=== PATIENT | female | born 1960 | race Caucasian/White ===

== ENCOUNTER 2021-09-27 19:58 | Inpatient (IN) | payer MEDICARE, MEDICAID ==
[2021-09-27 20:28] LABS: #Basophils 0.1 10x3/uL (0.0-0.2); #Eosinphils 0.1 10x3/uL (0.0-0.5); #Neutrophils 15.2 10x3/uL (1.5-8.4); %Basophils 0.3 % (0.0-2.0); %Eosinophils 0.5 % (0.0-6.0); %Lymphocytes 5.1 % (18.0-47.0); %Monocytes 10.8 % (0.0-10.0); %Neutrophils 82.4 % (40.0-75.0); Hemoglobin 10.2 g/dL (12.0-15.5); Mean Corpuscular Hemoglobin 29.7 pg (27.0-33.0); Mean Platelet Volume 10.9 fl (7.4-10.4); Platelet Count 177 10x3/uL (150-450); RBC Distribution Width 16.2 % (11.5-14.5); Red Blood Cell (RBC) Count 3.43 10x6/uL (3.90-5.03); White Blood Cell (WBC) Count 18.4 10x3/uL (3.5-10.5)
[2021-09-27 20:31] LABS: ALT (SGPT) 39 U/L (8-55); AST (SGOT) 43 U/L (5-34); Albumin 3.5 g/dL (3.4-4.8); Alkaline Phosphatase 85 U/L (40-110); Anion Gap 14 mmol/L (10-20); BUN (Urea Nitrogen) 36 mg/dL (9.8-20.1); Bilirubin, Total 0.5 mg/dL (0.2-1.2); Calc. Creatinine Clearance 0 mL/min (70-130); Carbon Dioxide 24 mmol/L (23-31); Chloride 105 mmol/L (98-107); Globulin 2.3 g/dL (2.4-3.5); Glucose 108 mg/dL (80-115); Potassium 4.5 mmol/L (3.5-5.1); Protein, Total 5.8 g/dL (5.8-8.1); Sodium 138 mmol/L (136-145)
[2021-09-27 21:28] LABS: SARS-CoV-2 NAA Rapid Test Not Detected (NotDetected)
[2021-09-27 21:32] LABS: Bilirubin Neg (Negative); Blood, Urine 150 (Negative); Clarity Slightly Cloudy (Clear); Glucose, Urine (Dipstick) Normal (Negative); Ketone, Urine 5 mg/dL (Negative); Leukocyte 500 (Negative); Nitrite Positive (Negative); Protein, Urine (Dipstick) 30 mg/dl (Neg-Trace); Urobilinogen Normal mg/dL (Less than 2)
[2021-09-27] MEDS ORDERED: cefTRIAXone\\ROCEPHIN 1 GM VIAL ONE (21:43)
[2021-09-27 21:54] LABS: Bacteria/HPF 4+ HPF (None Seen); Mucous/LPF 3+ LPF (<2+); Squamous Epithelial 0-3 HPF (0-3); WBC/HPF 21-50 HPF (0-3)
[2021-09-27] MEDS ORDERED: cefTRIAXone\\ROCEPHIN 2 GM in Sodium Chloride 0.9% 100 ML IVPB SCH (22:00)
[2021-09-27] MEDS ORDERED: Ondansetron ODT 4 MG TAB PO PRN (22:56)
[2021-09-27] MEDS ORDERED: Ondansetron PF 4 MG/2 ML Vial IVP PRN (22:56)
[2021-09-27] MEDS ORDERED: cefTRIAXone\\ROCEPHIN 1 GM in Sodium Chloride 0.9% 100 ML IVPB SCH (23:00)
[2021-09-27] MEDS ORDERED: traMADol HCl 50 MG TAB PO PRN (23:09)
[2021-09-27] MEDS ORDERED: Furosemide 40 MG TAB PO PRN (23:09)
[2021-09-27] MEDS ORDERED: Alendronate Sodium 70 mg Tablet PO SCH (23:15)
[2021-09-28 00:05] VITALS: BMI 44.2
[2021-09-28] MEDS ORDERED: hydrOXYzine 25 MG TAB PO SCH (01:00)
[2021-09-28] MEDS ORDERED: Amiodarone 200 MG TAB PO SCH (01:00)
[2021-09-28] MEDS ORDERED: Aspirin Chewable 81 MG TAB PO SCH ×2 (01:00→09:00)
[2021-09-28] MEDS ORDERED: Gabapentin 300 MG CAP PO SCH (01:00)
[2021-09-28] MEDS ORDERED: Montelukast Sodium 10 mg Tablet PO SCH ×2 (01:00→09:00)
[2021-09-28] MEDS: Sodium Chloride 0.9% 1,000 ML IV SCH ×2 (05:00→09:45)
[2021-09-28 05:52] LABS: Anion Gap 12 mmol/L (10-20); BUN (Urea Nitrogen) 30 mg/dL (9.8-20.1); Calc. Creatinine Clearance 105 mL/min (70-130); Calcium 7.7 mg/dL (7.8-10.44); Carbon Dioxide 22 mmol/L (23-31); Chloride 109 mmol/L (98-107); Glucose 100 mg/dL (80-115); Potassium 4.1 mmol/L (3.5-5.1); Sodium 139 mmol/L (136-145)
[2021-09-28 06:01] LABS: Hemoglobin 9.6 g/dL (12.0-15.5); Mean Corpuscular HGB CONC 32.2 g/dL (32.0-36.0); Mean Corpuscular Hemoglobin 29.4 pg (27.0-33.0); Mean Corpuscular Volume 91.4 fl (81.6-98.3); Mean Platelet Volume 11.1 fl (7.4-10.4); Platelet Count 165 10x3/uL (150-450); RBC Distribution Width 16.1 % (11.5-14.5); Red Blood Cell (RBC) Count 3.26 10x6/uL (3.90-5.03); White Blood Cell (WBC) Count 14.9 10x3/uL (3.5-10.5)
[2021-09-28 06:25] LABS: MDiff Complete? YES
[2021-09-28 06:29] LABS: Lymphocytes 8 % (21-51); Monocytes 13 % (0-10); Neutrophil 79 % (42-75)
[2021-09-28 06:30] LABS: Platelet Morphology Comment Appears Adequate
[2021-09-28 06:31] LABS: Microcytosis SLIGHT = 6-15 cells (100X) (0-5/hpf)
[2021-09-28] MEDS: Acetaminophen 325 MG TAB PO PRN ×2 (06:49→11:15)
[2021-09-28] MEDS: Amiodarone 200 MG TAB PO SCH ×2 (09:34→20:50)
[2021-09-28] MEDS: Enoxaparin Sodium 40 MG/0.4 ML SYRINGE SC SCH (09:34)
[2021-09-28] MEDS: Bupropion 150 MG XL TAB PO SCH (09:34)
[2021-09-28] MEDS: Gabapentin 300 MG CAP PO SCH ×3 (09:35→20:47)
[2021-09-28] MEDS: Digoxin 0.125 MG TAB PO SCH (09:35)
[2021-09-28] MEDS: Aspirin Chewable 81 MG TAB PO SCH (20:47)
[2021-09-28] MEDS: Montelukast Sodium 10 mg Tablet PO SCH (20:48)
[2021-09-28] MEDS: hydrOXYzine 25 MG TAB PO SCH (20:49)
[2021-09-28] MEDS: cefTRIAXone\\ROCEPHIN 2 GM in Sodium Chloride 0.9% 100 ML IVPB SCH (22:59)
[2021-09-29] MEDS: Acetaminophen 325 MG TAB PO PRN (11:20)
[2021-09-29] MEDS: Digoxin 0.125 MG TAB PO SCH (11:21)
[2021-09-29] MEDS: Amiodarone 200 MG TAB PO SCH ×2 (11:21→21:04)
[2021-09-29] MEDS: Gabapentin 300 MG CAP PO SCH ×3 (11:22→21:07)
[2021-09-29] MEDS: Bupropion 150 MG XL TAB PO SCH (11:23)
[2021-09-29] MEDS: Enoxaparin Sodium 40 MG/0.4 ML SYRINGE SC SCH (11:33)
[2021-09-29 15:21] LABS: Hemoglobin 9.5 g/dL (12.0-15.5); Mean Corpuscular HGB CONC 31.9 g/dL (32.0-36.0); Mean Corpuscular Hemoglobin 29.1 pg (27.0-33.0); Mean Corpuscular Volume 91.1 fl (81.6-98.3); Mean Platelet Volume 11.5 fl (7.4-10.4); Platelet Count 174 10x3/uL (150-450); RBC Distribution Width 16.2 % (11.5-14.5); Red Blood Cell (RBC) Count 3.27 10x6/uL (3.90-5.03)
[2021-09-29 15:22] LABS: MDiff Complete? YES
[2021-09-29 15:24] LABS: #Eosinphils 0.1 10x3/uL (0.0-0.5); #Monocytes 0.9 10x3/uL (0.0-1.1); #Neutrophils 7.2 10x3/uL (1.5-8.4); %Basophils 0.3 % (0.0-2.0); %Eosinophils 0.7 % (0.0-6.0); %Lymphocytes 10.1 % (18.0-47.0); %Monocytes 9.7 % (0.0-10.0); %Neutrophils 78.7 % (40.0-75.0)
[2021-09-29 15:29] LABS: Anion Gap 11 mmol/L (10-20); BUN (Urea Nitrogen) 30 mg/dL (9.8-20.1); Calc. Creatinine Clearance 90 mL/min (70-130); Carbon Dioxide 22 mmol/L (23-31); Chloride 104 mmol/L (98-107); Glucose 102 mg/dL (80-115); Potassium 4.4 mmol/L (3.5-5.1); Sodium 133 mmol/L (136-145)
[2021-09-29] MEDS ORDERED: Sodium Chloride 0.9% 1,000 ML IV SCH (16:15)
[2021-09-29] MEDS: Aspirin Chewable 81 MG TAB PO SCH (21:03)
[2021-09-29] MEDS: Montelukast Sodium 10 mg Tablet PO SCH (21:04)
[2021-09-29] MEDS: hydrOXYzine 25 MG TAB PO SCH (21:06)
[2021-09-30] MEDS: cefTRIAXone\\ROCEPHIN 2 GM in Sodium Chloride 0.9% 100 ML IVPB SCH ×2 (00:28→21:09)
[2021-09-30] MEDS: Acetaminophen 325 MG TAB PO PRN ×3 (00:32→19:05)
[2021-09-30 05:26] LABS: Hemoglobin 9.5 g/dL (12.0-15.5); Mean Corpuscular HGB CONC 32.4 g/dL (32.0-36.0); Mean Corpuscular Hemoglobin 29.2 pg (27.0-33.0); Mean Corpuscular Volume 90.2 fl (81.6-98.3); Mean Platelet Volume 11.1 fl (7.4-10.4); Platelet Count 192 10x3/uL (150-450); RBC Distribution Width 16.2 % (11.5-14.5); Red Blood Cell (RBC) Count 3.25 10x6/uL (3.90-5.03); White Blood Cell (WBC) Count 7.1 10x3/uL (3.5-10.5)
[2021-09-30 05:32] LABS: Anion Gap 13 mmol/L (10-20); BUN (Urea Nitrogen) 24 mg/dL (9.8-20.1); Calc. Creatinine Clearance 103 mL/min (70-130); Calcium 7.7 mg/dL (7.8-10.44); Carbon Dioxide 22 mmol/L (23-31); Chloride 106 mmol/L (98-107); Glucose 83 mg/dL (80-115); Potassium 4.6 mmol/L (3.5-5.1); Sodium 136 mmol/L (136-145)
[2021-09-30 05:55] LABS: Anisocytosis SLIGHT = 6-15 cells (100X) (0-5/hpf); Hypochromia SLIGHT = 6-15 cells (100X) (0-5/hpf); MDiff Complete? YES; Platelet Morphology Comment Appears Adequate
[2021-09-30 05:58] LABS: Band 1 % (5-11); Eosinophils 1 % (0-10); Lymphocytes 16 % (21-51); Monocytes 9 % (0-10); Neutrophil 71 % (42-75); Reactive Lymphocytes 2 % (0-10)
[2021-09-30] MEDS: Enoxaparin Sodium 40 MG/0.4 ML SYRINGE SC SCH (10:11)
[2021-09-30] MEDS: Gabapentin 300 MG CAP PO SCH ×3 (10:14→21:06)
[2021-09-30] MEDS: Digoxin 0.125 MG TAB PO SCH (10:14)
[2021-09-30] MEDS: Bupropion 150 MG XL TAB PO SCH (10:15)
[2021-09-30] MEDS: Amiodarone 200 MG TAB PO SCH ×2 (10:15→21:06)
[2021-09-30] MEDS: Aspirin Chewable 81 MG TAB PO SCH (21:06)
[2021-09-30] MEDS: Montelukast Sodium 10 mg Tablet PO SCH (21:07)
[2021-09-30] MEDS: hydrOXYzine 25 MG TAB PO SCH (21:07)
[2021-10-01 04:54] LABS: #Eosinphils 0.3 10x3/uL (0.0-0.5); #Neutrophils 4.1 10x3/uL (1.5-8.4); %Basophils 0.4 % (0.0-2.0); %Eosinophils 4.4 % (0.0-6.0); %Monocytes 14.2 % (0.0-10.0); %Neutrophils 57.7 % (40.0-75.0); Hemoglobin 9.5 g/dL (12.0-15.5); Mean Corpuscular HGB CONC 32.1 g/dL (32.0-36.0); Mean Corpuscular Hemoglobin 29.2 pg (27.0-33.0); Mean Corpuscular Volume 91.1 fl (81.6-98.3); Mean Platelet Volume 10.5 fl (7.4-10.4); Platelet Count 223 10x3/uL (150-450); RBC Distribution Width 16.4 % (11.5-14.5); Red Blood Cell (RBC) Count 3.25 10x6/uL (3.90-5.03)
[2021-10-01 05:08] LABS: ALT (SGPT) 26 U/L (8-55); AST (SGOT) 18 U/L (5-34); Alkaline Phosphatase 82 U/L (40-110); Anion Gap 12 mmol/L (10-20); BUN (Urea Nitrogen) 23 mg/dL (9.8-20.1); Bilirubin, Total 0.1 mg/dL (0.2-1.2); Calc. Creatinine Clearance 115 mL/min (70-130); Carbon Dioxide 23 mmol/L (23-31); Chloride 108 mmol/L (98-107); Globulin 2.7 g/dL (2.4-3.5); Glucose 87 mg/dL (80-115); Magnesium 2.1 mg/dL (1.6-2.6); Potassium 4.6 mmol/L (3.5-5.1); Protein, Total 5.7 g/dL (5.8-8.1); Sodium 138 mmol/L (136-145)
[2021-10-01 05:28] LABS: Phosphorus 1.9 mg/dL (2.3-4.7)
[2021-10-01] MEDS: Enoxaparin Sodium 40 MG/0.4 ML SYRINGE SC SCH (10:33)
[2021-10-01] MEDS: Bupropion 150 MG XL TAB PO SCH (10:37)
[2021-10-01] MEDS: Gabapentin 300 MG CAP PO SCH ×2 (10:37→14:05)
[2021-10-01] MEDS: PHOS-NAK 1 PKT PACK PO SCH ×2 (10:39→14:05)
[2021-10-01] MEDS: Digoxin 0.125 MG TAB PO SCH (10:53)
[2021-10-01] MEDS: Amiodarone 200 MG TAB PO SCH (10:54)
[2021-10-01] MEDS: Acetaminophen 325 MG TAB PO PRN (14:03)
[2021-10-01 17:57] VITALS: BP 142/62; TEMP 98.8
== END 2021-10-01 17:58 | disposition home or self-care (01) | DRG 872 ==
LOC: CSHERS 19:58 → CSHTELE 09-28 00:01
PROVIDERS: ADMIT Family Medicine; ATTEND Family Medicine
DX: A41.51 Sepsis due to Escherichia coli [E. coli] (principal); N39.0 Urinary tract infection, site not specified; I42.8 Other cardiomyopathies; N17.9 Acute kidney failure, unspecified; K31.1 Adult hypertrophic pyloric stenosis; M19.90 Unspecified osteoarthritis, unspecified site; Z20.822 Contact with and (suspected) exposure to COVID-19; I48.91 Unspecified atrial fibrillation; K21.9 Gastro-esophageal reflux disease without esophagitis; I10 Essential (primary) hypertension; E66.9 Obesity, unspecified; E78.5 Hyperlipidemia, unspecified; E78.00 Pure hypercholesterolemia, unspecified; E86.0 Dehydration; Z96.653 Presence of artificial knee joint, bilateral; D64.9 Anemia, unspecified; Z95.810 Presence of automatic (implantable) cardiac defibrillator; Z79.82 Long term (current) use of aspirin; Z79.899 Other long term (current) drug therapy; Z90.49 Acquired absence of other specified parts of digestive tract; Z90.89 Acquired absence of other organs; Z98.84 Bariatric surgery status
CPT/HCPCS: 0240U; 36415; 51701; 76770; 80048; 80053; 81003; 81015; 83605; 83735; 84100; 84484; 85025; 87040; 87077; 87086; 87149; 87186; 93005; 96365; J0696; J1650; J3490; J7050

== ENCOUNTER 2021-11-04 14:46 | Emergency (ER) | payer MEDICARE, MEDICAID ==
[2021-11-04 15:55] LABS: Bilirubin Neg (Negative); Blood, Urine Negative (Negative); Clarity Clear (Clear); Glucose, Urine (Dipstick) Normal (Negative); Ketone, Urine 15 mg/dL (Negative); Leukocyte 100 (Negative); Nitrite Negative (Negative); Protein, Urine (Dipstick) Negative (Neg-Trace)
[2021-11-04 16:09] LABS: Bacteria/HPF Rare-Few HPF (None Seen); RBC/HPF 0-3 HPF (0-3); Squamous Epithelial 0-3 HPF (0-3); WBC/HPF 0-3 HPF (0-3)
[2021-11-04 16:29] LABS: #Eosinphils 0.1 10x3/uL (0.0-0.5); #Monocytes 0.7 10x3/uL (0.0-1.1); #Neutrophils 5.9 10x3/uL (1.5-8.4); %Basophils 0.5 % (0.0-2.0); %Eosinophils 1.5 % (0.0-6.0); %Lymphocytes 17.3 % (18.0-47.0); %Monocytes 8.4 % (0.0-10.0); %Neutrophils 72.2 % (40.0-75.0); Hemoglobin 12.1 g/dL (12.0-15.5); Mean Corpuscular HGB CONC 32.6 g/dL (32.0-36.0); Mean Corpuscular Hemoglobin 29.9 pg (27.0-33.0); Mean Corpuscular Volume 91.6 fl (81.6-98.3); Mean Platelet Volume 10.9 fl (7.4-10.4); Platelet Count 214 10x3/uL (150-450); RBC Distribution Width 16.6 % (11.5-14.5); Red Blood Cell (RBC) Count 4.05 10x6/uL (3.90-5.03); White Blood Cell (WBC) Count 8.2 10x3/uL (3.5-10.5)
[2021-11-04 17:04] LABS: ALT (SGPT) 27 U/L (8-55); AST (SGOT) 20 U/L (5-34); Albumin 3.9 g/dL (3.4-4.8); Alkaline Phosphatase 65 U/L (40-110); Anion Gap 14 mmol/L (10-20); BUN (Urea Nitrogen) 21 mg/dL (9.8-20.1); Bilirubin, Total 0.8 mg/dL (0.2-1.2); Calc. Creatinine Clearance 0 mL/min (70-130); Calcium 8.8 mg/dL (7.8-10.44); Carbon Dioxide 28 mmol/L (23-31); Chloride 101 mmol/L (98-107); Globulin 2.8 g/dL (2.4-3.5); Glucose 100 mg/dL (80-115); Potassium 4.6 mmol/L (3.5-5.1); Protein, Total 6.7 g/dL (5.8-8.1); Sodium 138 mmol/L (136-145)
[2021-11-04 19:45] LABS: Digoxin 1.19 ng/mL (0.8-2.0)
[2021-11-04 19:51] LABS: Troponin I 0.013 ng/mL (< 0.028)
== END 2021-11-04 20:57 | disposition home or self-care (01) ==
LOC: CSHERS 14:46
DX: R00.1 Bradycardia, unspecified (principal); R53.1 Weakness; I10 Essential (primary) hypertension; K21.9 Gastro-esophageal reflux disease without esophagitis; E78.5 Hyperlipidemia, unspecified; E78.00 Pure hypercholesterolemia, unspecified; Z79.82 Long term (current) use of aspirin; Z79.899 Other long term (current) drug therapy
CPT/HCPCS: 36415; 71045; 74177; 80053; 80162; 81003; 81015; 83605; 84484; 85025; 87040; 87086; 87804; 93005

== ENCOUNTER 2022-01-17 10:18 | Outpatient (CLI) | payer MEDICARE, MEDICAID | END 2022-01-17 10:19 | disposition home or self-care (01) | LOC: CSHCT 10:18 | PROVIDERS: ATTEND Specialist | DX: E21.3 Hyperparathyroidism, unspecified (principal) | CPT/HCPCS: 70492; 82565 ==

== ENCOUNTER 2022-12-04 15:18 | Inpatient (IN) | payer MEDICARE, MEDICAID ==
[2022-12-04 16:42] LABS: #Basophils 0.1 10x3/uL (0.0-0.2); #Eosinphils 0.2 10x3/uL (0.0-0.5); #Monocytes 1.2 10x3/uL (0.0-1.1); #Neutrophils 10.6 10x3/uL (1.5-8.4); %Basophils 0.5 % (0.0-2.0); %Eosinophils 1.3 % (0.0-6.0); %Monocytes 8.8 % (0.0-10.0); %Neutrophils 80.9 % (40.0-75.0); Hemoglobin 13.7 g/dL (12.0-15.5); Mean Corpuscular HGB CONC 33.3 g/dL (32.0-36.0); Mean Corpuscular Hemoglobin 29.3 pg (27.0-33.0); Mean Platelet Volume 10.9 fl (7.4-10.4); Platelet Count 285 10x3/uL (150-450); RBC Distribution Width 16.8 % (11.5-14.5); Red Blood Cell (RBC) Count 4.68 10x6/uL (3.90-5.03); White Blood Cell (WBC) Count 13.1 10x3/uL (3.5-10.5)
[2022-12-04 16:56] LABS: ALT (SGPT) 624 U/L (8-55); AST (SGOT) 437 U/L (5-34); Albumin 3.5 g/dL (3.4-4.8); Alkaline Phosphatase 125 U/L (40-110); Anion Gap 16 mmol/L (10-20); BUN (Urea Nitrogen) 51 mg/dL (9.8-20.1); Bilirubin, Total 1.3 mg/dL (0.2-1.2); CK (CPK) 20 U/L (29-168); Calc. Creatinine Clearance 0 mL/min (70-130); Calcium 9.6 mg/dL (7.8-10.44); Carbon Dioxide 30 mmol/L (23-31); Chloride 96 mmol/L (98-107); Estimated GFR 17; Globulin 2.8 g/dL (2.4-3.5); Glucose 98 mg/dL (80-115); Lipase 58 U/L (8-78); Magnesium 2.3 mg/dL (1.6-2.6); Potassium 5.2 mmol/L (3.5-5.1); Protein, Total 6.3 g/dL (5.8-8.1); Sodium 137 mmol/L (136-145)
[2022-12-04 17:45] LABS: Phosphorus 3.3 mg/dL (2.3-4.7)
[2022-12-04 17:47] LABS: Acetaminophen Less than 10.0 mcg/mL (10.0-30.0)
[2022-12-04 18:00] LABS: Digoxin 6.42 ng/mL (0.8-2.0)
[2022-12-04 18:56] LABS: ALT (SGPT) 625 U/L (8-55); AST (SGOT) 425 U/L (5-34); Albumin 3.5 g/dL (3.4-4.8); Alkaline Phosphatase 126 U/L (40-110); Anion Gap 15 mmol/L (10-20); BUN (Urea Nitrogen) 50 mg/dL (9.8-20.1); Bilirubin, Total 1.3 mg/dL (0.2-1.2); Calc. Creatinine Clearance 0 mL/min (70-130); Calcium 9.5 mg/dL (7.8-10.44); Carbon Dioxide 30 mmol/L (23-31); Chloride 96 mmol/L (98-107); Estimated GFR 18; Globulin 2.8 g/dL (2.4-3.5); Glucose 93 mg/dL (80-115); Potassium 5.4 mmol/L (3.5-5.1); Protein, Total 6.3 g/dL (5.8-8.1); Sodium 136 mmol/L (136-145)
[2022-12-04 19:18] LABS: Magnesium 2.3 mg/dL (1.6-2.6)
[2022-12-04 19:43] LABS: SARS-CoV-2 NAA Rapid Test DETECTED (NotDetected)
[2022-12-04] MEDS ORDERED: Calcium Carbonate 500 MG ChewTAB PO PRN (19:49)
[2022-12-04] MEDS ORDERED: Guaifenesin DM 100-10/5 ML UDCUP PO PRN (19:49)
[2022-12-04] MEDS ORDERED: Senokot S 8.6-50 MG TAB PO PRN (19:49)
[2022-12-04] MEDS ORDERED: Sodium Chloride 0.9% 1,000 ML IV SCH (20:00)
[2022-12-04 20:51] LABS: ALT (SGPT) 585 U/L (8-55); AST (SGOT) 386 U/L (5-34); Albumin 3.3 g/dL (3.4-4.8); Alkaline Phosphatase 117 U/L (40-110); Anion Gap 15 mmol/L (10-20); BUN (Urea Nitrogen) 49 mg/dL (9.8-20.1); Bilirubin, Total 1.2 mg/dL (0.2-1.2); Calc. Creatinine Clearance 0 mL/min (70-130); Calcium 9.4 mg/dL (7.8-10.44); Carbon Dioxide 32 mmol/L (23-31); Chloride 95 mmol/L (98-107); Estimated GFR 19; Globulin 2.6 g/dL (2.4-3.5); Glucose 89 mg/dL (80-115); Magnesium 2.2 mg/dL (1.6-2.6); Potassium 5.7 mmol/L (3.5-5.1); Protein, Total 5.9 g/dL (5.8-8.1); Sodium 136 mmol/L (136-145)
[2022-12-04] MEDS: Heparin 5,000 UNITS/ML VIAL SC SCH (22:12)
[2022-12-04] MEDS: Montelukast Sodium 10 mg Tablet PO SCH (22:12)
[2022-12-04] MEDS ORDERED: Calcium Gluc 4.6 MEQ/10 ML (100 MG/ML) SLOW IVP SCH (22:30)
[2022-12-04 23:02] LABS: Anion Gap 13 mmol/L (10-20); BUN (Urea Nitrogen) 51 mg/dL (9.8-20.1); Calc. Creatinine Clearance 31 mL/min (70-130); Carbon Dioxide 22 mmol/L (23-31); Chloride 98 mmol/L (98-107); Estimated GFR 20; Glucose 78 mg/dL (80-115); Sodium 127 mmol/L (136-145)
[2022-12-04 23:28] LABS: HBCM Index 0.06 S/CO (0-0.79); HBSAg Index 0.32 S/CO (0-0.99); Hep A IgM AB Non-Reactive (NonReactive); Hep A IgM S/CO 0.19 S/CO (0-0.79); Hep B Surf Ag Non-Reactive S/CO (NonReactive); Hep C IgG Ab Non-Reactive (NonReactive); Hep C Index 0.05 S/CO (0-0.79); Hepatitis B Core IgM Abs Non-Reactive (NonReactive)
[2022-12-04 23:38] LABS: Potassium 5.3 mmol/L (3.5-5.1)
[2022-12-05 04:14] LABS: #Basophils 0.1 10x3/uL (0.0-0.2); #Eosinphils 0.2 10x3/uL (0.0-0.5); #Monocytes 1.1 10x3/uL (0.0-1.1); #Neutrophils 8.2 10x3/uL (1.5-8.4); %Basophils 0.5 % (0.0-2.0); %Lymphocytes 9.3 % (18.0-47.0); %Monocytes 10.5 % (0.0-10.0); %Neutrophils 77.1 % (40.0-75.0); Hemoglobin 13.5 g/dL (12.0-15.5); Mean Corpuscular HGB CONC 34.1 g/dL (32.0-36.0); Mean Corpuscular Hemoglobin 29.8 pg (27.0-33.0); Mean Corpuscular Volume 87.4 fl (81.6-98.3); Mean Platelet Volume 10.6 fl (7.4-10.4); Platelet Count 242 10x3/uL (150-450); RBC Distribution Width 16.7 % (11.5-14.5); Red Blood Cell (RBC) Count 4.53 10x6/uL (3.90-5.03); White Blood Cell (WBC) Count 10.6 10x3/uL (3.5-10.5)
[2022-12-05 04:32] LABS: ALT (SGPT) 564 U/L (8-55); AST (SGOT) 348 U/L (5-34); Albumin 3.2 g/dL (3.4-4.8); Alkaline Phosphatase 116 U/L (40-110); Anion Gap 16 mmol/L (10-20); BUN (Urea Nitrogen) 49 mg/dL (9.8-20.1); Bilirubin, Total 1.1 mg/dL (0.2-1.2); Calc. Creatinine Clearance 32 mL/min (70-130); Calcium 9.1 mg/dL (7.8-10.44); Carbon Dioxide 28 mmol/L (23-31); Chloride 97 mmol/L (98-107); Estimated GFR 21; Globulin 2.6 g/dL (2.4-3.5); Glucose 89 mg/dL (80-115); Magnesium 2.1 mg/dL (1.6-2.6); Potassium 5.2 mmol/L (3.5-5.1); Protein, Total 5.8 g/dL (5.8-8.1); Sodium 136 mmol/L (136-145)
[2022-12-05 05:07] LABS: Digoxin 5.28 ng/mL (0.8-2.0)
[2022-12-05 05:23] LABS: Bilirubin Neg (Negative); Blood, Urine Negative (Negative); Clarity Clear (Clear); Glucose, Urine (Dipstick) Normal (Negative); Ketone, Urine 5 mg/dL (Negative); Leukocyte Negative (Negative); Nitrite Negative (Negative); Protein, Urine (Dipstick) 15 mg/dl (Neg-Trace); Urobilinogen Normal mg/dL (Less than 2)
[2022-12-05 06:06] LABS: RBC/HPF None Seen HPF (0-3); WBC/HPF None Seen HPF (0-3)
[2022-12-05 06:07] LABS: Bacteria/HPF None Seen HPF (None Seen); Squamous Epithelial None Seen HPF (0-3)
[2022-12-05] MEDS: Aspirin 81 mg Enteric Coated Tablet PO SCH (07:56)
[2022-12-05] MEDS: Multivitamin W/ Minerals 1 TAB PO SCH (07:56)
[2022-12-05] MEDS: Ondansetron PF 4 MG/2 ML Vial IVP PRN (07:56)
[2022-12-05] MEDS: Heparin 5,000 UNITS/ML VIAL SC SCH ×3 (07:56→20:35)
[2022-12-05] MEDS: Sodium Chloride 0.9% 1,000 ML IV SCH (08:00)
[2022-12-05] MEDS: Gabapentin 100 MG CAP PO SCH (08:03)
[2022-12-05] MEDS: Acetaminophen 325 MG TAB PO PRN (20:34)
[2022-12-05] MEDS: Montelukast Sodium 10 mg Tablet PO SCH (20:34)
[2022-12-06 04:53] LABS: Anion Gap 12 mmol/L (10-20); BUN (Urea Nitrogen) 35 mg/dL (9.8-20.1); Calc. Creatinine Clearance 58 mL/min (70-130); Calcium 8.4 mg/dL (7.8-10.44); Carbon Dioxide 28 mmol/L (23-31); Chloride 100 mmol/L (98-107); Estimated GFR 43; Glucose 84 mg/dL (80-115); Potassium 4.3 mmol/L (3.5-5.1); Sodium 136 mmol/L (136-145)
[2022-12-06 05:00] LABS: Digoxin 4.07 ng/mL (0.8-2.0)
[2022-12-06 05:44] VITALS: BMI 34.2
[2022-12-06] MEDS: Sodium Chloride 0.9% 1,000 ML IV SCH ×2 (05:46→17:33)
[2022-12-06] MEDS: Gabapentin 100 MG CAP PO SCH (08:26)
[2022-12-06] MEDS: Multivitamin W/ Minerals 1 TAB PO SCH (08:27)
[2022-12-06] MEDS: Aspirin 81 mg Enteric Coated Tablet PO SCH (08:27)
[2022-12-06] MEDS: Heparin 5,000 UNITS/ML VIAL SC SCH ×3 (08:27→21:16)
[2022-12-06] MEDS ORDERED: Bupropion 150 MG XL TAB PO SCH (13:00)
[2022-12-06] MEDS: Ondansetron PF 4 MG/2 ML Vial IVP PRN (13:47)
[2022-12-06] MEDS: Montelukast Sodium 10 mg Tablet PO SCH (21:16)
[2022-12-06] MEDS: Acetaminophen 325 MG TAB PO PRN (22:08)
[2022-12-07] MEDS: Gabapentin 100 MG CAP PO SCH (08:50)
[2022-12-07] MEDS: Heparin 5,000 UNITS/ML VIAL SC SCH ×3 (08:50→20:04)
[2022-12-07] MEDS: Bupropion 150 MG XL TAB PO SCH (08:51)
[2022-12-07] MEDS: Multivitamin W/ Minerals 1 TAB PO SCH (08:51)
[2022-12-07] MEDS: Sodium Chloride 0.9% 1,000 ML IV SCH (08:51)
[2022-12-07] MEDS: Aspirin 81 mg Enteric Coated Tablet PO SCH (08:51)
[2022-12-07 09:52] LABS: ALT (SGPT) 459 U/L (8-55); AST (SGOT) 201 U/L (5-34); Albumin 3.6 g/dL (3.4-4.8); Alkaline Phosphatase 110 U/L (40-110); Anion Gap 13 mmol/L (10-20); BUN (Urea Nitrogen) 24 mg/dL (9.8-20.1); Calc. Creatinine Clearance 90 mL/min (70-130); Calcium 9.1 mg/dL (7.8-10.44); Carbon Dioxide 26 mmol/L (23-31); Chloride 102 mmol/L (98-107); Estimated GFR 73; Globulin 2.7 g/dL (2.4-3.5); Glucose 115 mg/dL (80-115); Potassium 4.2 mmol/L (3.5-5.1); Protein, Total 6.3 g/dL (5.8-8.1); Sodium 137 mmol/L (136-145)
[2022-12-07 12:26] LABS: Digoxin 1.97 ng/mL (0.8-2.0)
[2022-12-07] MEDS: Acetaminophen 325 MG TAB PO PRN (20:03)
[2022-12-08] MEDS: Acetaminophen 325 MG TAB PO PRN (02:47)
[2022-12-08] MEDS: Sodium Chloride 0.9% 1,000 ML IV SCH (05:03)
[2022-12-08 05:47] LABS: ALT (SGPT) 351 U/L (8-55); AST (SGOT) 114 U/L (5-34); Albumin 3.5 g/dL (3.4-4.8); Alkaline Phosphatase 95 U/L (40-110); Anion Gap 12 mmol/L (10-20); BUN (Urea Nitrogen) 21 mg/dL (9.8-20.1); Bilirubin, Total 0.9 mg/dL (0.2-1.2); Calc. Creatinine Clearance 97 mL/min (70-130); Calcium 8.5 mg/dL (7.8-10.44); Carbon Dioxide 27 mmol/L (23-31); Chloride 101 mmol/L (98-107); Estimated GFR 80; Globulin 2.1 g/dL (2.4-3.5); Glucose 93 mg/dL (80-115); Potassium 3.9 mmol/L (3.5-5.1); Protein, Total 5.6 g/dL (5.8-8.1); Sodium 136 mmol/L (136-145)
[2022-12-08 08:24] VITALS: BP 123/59; TEMP 97.9
[2022-12-08] MEDS: Gabapentin 100 MG CAP PO SCH (08:38)
[2022-12-08] MEDS: Bupropion 150 MG XL TAB PO SCH (08:39)
[2022-12-08] MEDS: Aspirin 81 mg Enteric Coated Tablet PO SCH (08:39)
[2022-12-08] MEDS: Multivitamin W/ Minerals 1 TAB PO SCH (08:39)
[2022-12-08] MEDS: Heparin 5,000 UNITS/ML VIAL SC SCH (08:44)
[2022-12-08] MEDS ORDERED: Montelukast Sodium 10 mg Tablet PO SCH (09:00)
== END 2022-12-08 09:30 | disposition home or self-care (01) | DRG 682 ==
LOC: CSHERS 15:18 → CSHICU 20:49 → CSHTELE 12-08 05:01
PROVIDERS: ADMIT Student in an Organized Health Care Education/Training Program; ATTEND Family Medicine
DX: N17.9 Acute kidney failure, unspecified (principal); U07.1 COVID-19; I42.8 Other cardiomyopathies; E86.0 Dehydration; E87.5 Hyperkalemia; K21.9 Gastro-esophageal reflux disease without esophagitis; T46.0X5A Adverse effect of cardiac-stimulant glycosides and drugs of similar action, initial encounter; Z96.643 Presence of artificial hip joint, bilateral; E66.01 Morbid (severe) obesity due to excess calories; Z66 Do not resuscitate; R53.81 Other malaise; N18.9 Chronic kidney disease, unspecified; R74.01 Elevation of levels of liver transaminase levels; I12.9 Hypertensive chronic kidney disease with stage 1 through stage 4 chronic kidney disease, or unspecified chronic kidney disease; R33.9 Retention of urine, unspecified; Z88.8 Allergy status to other drugs, medicaments and biological substances; Z90.49 Acquired absence of other specified parts of digestive tract; Z79.82 Long term (current) use of aspirin; Z79.899 Other long term (current) drug therapy; Z95.810 Presence of automatic (implantable) cardiac defibrillator; Z90.89 Acquired absence of other organs; Z82.49 Family history of ischemic heart disease and other diseases of the circulatory system; Z80.1 Family history of malignant neoplasm of trachea, bronchus and lung
CPT/HCPCS: 36415; 71045; 74176; 80048; 80053; 80074; 80143; 80162; 81001; 82550; 83605; 83690; 83735; 84100; 85025; 87040; 93005; 93010; 94760; 80307; J0610; J1644; J2405; J7050; U0002

== ENCOUNTER 2022-12-24 15:31 | Inpatient (IN) | payer MEDICARE, MEDICAID ==
[2022-12-24 16:48] LABS: #Basophils 0.1 10x3/uL (0.0-0.2); #Eosinphils 0.3 10x3/uL (0.0-0.5); #Monocytes 0.8 10x3/uL (0.0-1.1); #Neutrophils 7.7 10x3/uL (1.5-8.4); %Basophils 0.5 % (0.0-2.0); %Eosinophils 3.2 % (0.0-6.0); %Lymphocytes 8.5 % (18.0-47.0); %Neutrophils 79.5 % (40.0-75.0); Hemoglobin 11.3 g/dL (12.0-15.5); Mean Corpuscular HGB CONC 35.2 g/dL (32.0-36.0); Mean Corpuscular Hemoglobin 29.2 pg (27.0-33.0); Mean Corpuscular Volume 82.9 fl (81.6-98.3); Mean Platelet Volume 11.4 fl (7.4-10.4); Platelet Count 192 10x3/uL (150-450); RBC Distribution Width 16.7 % (11.5-14.5); Red Blood Cell (RBC) Count 3.87 10x6/uL (3.90-5.03); White Blood Cell (WBC) Count 9.6 10x3/uL (3.5-10.5)
[2022-12-24 17:03] LABS: ALT (SGPT) 42 U/L (8-55); AST (SGOT) 32 U/L (5-34); Albumin 3.8 g/dL (3.4-4.8); Alkaline Phosphatase 113 U/L (40-110); Anion Gap 14 mmol/L (10-20); BUN (Urea Nitrogen) 29 mg/dL (9.8-20.1); Bilirubin, Total 0.8 mg/dL (0.2-1.2); Calc. Creatinine Clearance 0 mL/min (70-130); Calcium 9.7 mg/dL (7.8-10.44); Carbon Dioxide 27 mmol/L (23-31); Chloride 100 mmol/L (98-107); Estimated GFR 34; Glucose 104 mg/dL (80-115); Potassium 4.4 mmol/L (3.5-5.1); Protein, Total 6.8 g/dL (5.8-8.1); Sodium 137 mmol/L (136-145)
[2022-12-24] MEDS ORDERED: Furosemide 40 MG/4 ML VIAL ONE (20:35)
[2022-12-24] MEDS ORDERED: Acetaminophen 325 MG TAB ONE (20:35)
[2022-12-24] MEDS ORDERED: Senokot S 8.6-50 MG TAB PO PRN (20:37)
[2022-12-24] MEDS ORDERED: Ondansetron PF 4 MG/2 ML Vial IVP PRN (20:37)
[2022-12-24] MEDS ORDERED: Calcium Carbonate 500 MG ChewTAB PO PRN (20:37)
[2022-12-24] MEDS ORDERED: Ipratropium/Albuterol 3 ML NEB NEB PRN (20:44)
[2022-12-24] MEDS ORDERED: Nystatin/Triamcinolone Ointment 15 GM TUBE TOP SCH (21:00)
[2022-12-24 22:10] LABS: SARS-CoV-2 NAA Rapid Test DETECTED (NotDetected)
[2022-12-24] MEDS ORDERED: Nystatin/Triamcinolone Cream 15 GM TUBE TOP SCH (23:59)
[2022-12-25] MEDS: Gabapentin 100 MG CAP PO SCH ×4 (00:35→20:05)
[2022-12-25] MEDS: Acetaminophen 325 MG TAB PO PRN ×2 (02:30→22:25)
[2022-12-25 06:27] LABS: Anion Gap 16 mmol/L (10-20); BUN (Urea Nitrogen) 24 mg/dL (9.8-20.1); Calc. Creatinine Clearance 70 mL/min (70-130); Calcium 8.7 mg/dL (7.8-10.44); Carbon Dioxide 27 mmol/L (23-31); Chloride 100 mmol/L (98-107); Estimated GFR 47; Glucose 59 mg/dL (80-115); Potassium 4.3 mmol/L (3.5-5.1); Sodium 139 mmol/L (136-145)
[2022-12-25] MEDS ORDERED: Spironolactone 25 MG TAB PO SCH ×2 (09:00→09:15)
[2022-12-25] MEDS: Amiodarone 200 MG TAB PO SCH (09:14)
[2022-12-25] MEDS: hydrOXYzine 25 MG TAB PO SCH (09:14)
[2022-12-25] MEDS: Carvedilol 3.125 MG TAB PO SCH ×2 (09:14→16:41)
[2022-12-25] MEDS: Bupropion 150 MG XL TAB PO SCH (09:14)
[2022-12-25] MEDS: Multivit, Therapeutic 1 TAB PO SCH (09:14)
[2022-12-25] MEDS: Montelukast Sodium 10 mg Tablet PO SCH (09:14)
[2022-12-25] MEDS: Aspirin 81 mg Enteric Coated Tablet PO SCH (09:15)
[2022-12-25] MEDS: Furosemide 40 MG/4 ML VIAL SLOW IVP SCH (09:15)
[2022-12-25] MEDS: Nystatin/Triamcinolone Cream 15 GM TUBE TOP SCH ×2 (09:15→22:30)
[2022-12-25 14:14] LABS: ANA Symphony (Qualitative) Negative (Negative); ANA Symphony (Quantitative) 0.4 Ratio (< 0.7 Negative); dsDNA IgG Antibody 0.7 IU/mL (<10 Negative)
[2022-12-25] MEDS ORDERED: cefTRIAXone\\ROCEPHIN 2 GM in Sodium Chloride 0.9% 100 ML IVPB SCH (14:15)
[2022-12-25] MEDS ORDERED: Vancomycin 1 GM in Premix Bag 1 BAG IVPB SCH (14:15)
[2022-12-25] MEDS ORDERED: Vancomycin 1.5 GRAM/300 ML BAG 1.5 GM in Premix Bag 1 BAG IVPB SCH (14:30)
[2022-12-25] MEDS: Albumin 25% 25 GM/100 ML BOT IVPB SCH ×2 (14:55→20:05)
[2022-12-25] MEDS: Cefepime 2 GM in Sodium Chloride 0.9% 100 ML IVPB SCH (14:55)
[2022-12-25] MEDS: Furosemide 20 MG/2 ML VIAL SLOW IVP SCH (15:05)
[2022-12-25] MEDS ORDERED: Furosemide 20 MG/2 ML VIAL SLOW IVP SCH (17:00)
[2022-12-25] MEDS ORDERED: Electrolyte Replacement Protocol 1 EACH FS SCH (18:45)
[2022-12-26] MEDS: Albumin 25% 25 GM/100 ML BOT IVPB SCH ×4 (02:19→23:52)
[2022-12-26] MEDS: Acetaminophen 325 MG TAB PO PRN (02:20)
[2022-12-26] MEDS: Cefepime 2 GM in Sodium Chloride 0.9% 100 ML IVPB SCH ×2 (03:45→14:48)
[2022-12-26 06:14] LABS: #Basophils 0.1 10x3/uL (0.0-0.2); #Eosinphils 0.4 10x3/uL (0.0-0.5); #Monocytes 0.7 10x3/uL (0.0-1.1); %Basophils 0.6 % (0.0-2.0); %Eosinophils 4.6 % (0.0-6.0); %Lymphocytes 14.1 % (18.0-47.0); %Monocytes 8.4 % (0.0-10.0); %Neutrophils 72.1 % (40.0-75.0); Hemoglobin 10.2 g/dL (12.0-15.5); Mean Corpuscular HGB CONC 34.9 g/dL (32.0-36.0); Mean Corpuscular Hemoglobin 28.7 pg (27.0-33.0); Mean Corpuscular Volume 82.3 fl (81.6-98.3); Mean Platelet Volume 11.2 fl (7.4-10.4); Platelet Count 178 10x3/uL (150-450); RBC Distribution Width 16.6 % (11.5-14.5); Red Blood Cell (RBC) Count 3.55 10x6/uL (3.90-5.03); White Blood Cell (WBC) Count 8.3 10x3/uL (3.5-10.5)
[2022-12-26 06:27] LABS: ALT (SGPT) 23 U/L (8-55); AST (SGOT) 23 U/L (5-34); Alkaline Phosphatase 83 U/L (40-110); Anion Gap 15 mmol/L (10-20); BUN (Urea Nitrogen) 21 mg/dL (9.8-20.1); Bilirubin, Total 1.3 mg/dL (0.2-1.2); Calc. Creatinine Clearance 79 mL/min (70-130); Calcium 9.2 mg/dL (7.8-10.44); Carbon Dioxide 27 mmol/L (23-31); Chloride 100 mmol/L (98-107); Estimated GFR 54; Globulin 2.2 g/dL (2.4-3.5); Glucose 64 mg/dL (80-115); Magnesium 1.7 mg/dL (1.6-2.6); Protein, Total 6.2 g/dL (5.8-8.1); Sodium 138 mmol/L (136-145)
[2022-12-26] MEDS ORDERED: Spironolactone 25 MG TAB PO SCH (08:00)
[2022-12-26] MEDS: Amiodarone 200 MG TAB PO SCH (08:54)
[2022-12-26] MEDS: Gabapentin 100 MG CAP PO SCH ×3 (08:54→23:42)
[2022-12-26] MEDS: Spironolactone 25 MG TAB PO SCH (08:55)
[2022-12-26] MEDS: hydrOXYzine 25 MG TAB PO SCH (08:55)
[2022-12-26] MEDS: Montelukast Sodium 10 mg Tablet PO SCH (08:56)
[2022-12-26] MEDS: Carvedilol 3.125 MG TAB PO SCH ×2 (08:56→17:11)
[2022-12-26] MEDS: Bupropion 150 MG XL TAB PO SCH (08:56)
[2022-12-26] MEDS: Aspirin 81 mg Enteric Coated Tablet PO SCH (08:56)
[2022-12-26] MEDS: Furosemide 40 MG/4 ML VIAL SLOW IVP SCH (08:57)
[2022-12-26] MEDS: Magnesium 2 GM/50 ML(in water) 2 GM in Premix Bag 1 BAG IVPB SCH ×2 (08:57→11:19)
[2022-12-26] MEDS: Multivit, Therapeutic 1 TAB PO SCH (08:58)
[2022-12-26] MEDS: Nystatin/Triamcinolone Cream 15 GM TUBE TOP SCH ×2 (08:58→23:43)
[2022-12-26] MEDS ORDERED: Clotrimazole 1% Cream 15 GM TUBE TOP SCH (09:00)
[2022-12-26] MEDS ORDERED: Mag-Al 1200 mg/1200 mg/30 ML UDCUP PO PRN (13:59)
[2022-12-26] MEDS ORDERED: Vancomycin HCl 750 MG in Sodium Chloride 0.9% 250 ML 250 ML IVPB SCH (14:00)
[2022-12-26] MEDS ORDERED: Vancomycin HCl 1 GM in Sodium Chloride 0.9% 250 ML 250 ML IVPB SCH (14:30)
[2022-12-26] MEDS ORDERED: Mag-Al 1200 mg/1200 mg/30 ML UDCUP PO SCH (14:30)
[2022-12-26] MEDS: Furosemide 20 MG/2 ML VIAL SLOW IVP SCH (17:51)
[2022-12-26] MEDS ORDERED: Furosemide 100 MG in Sodium Chloride 0.9% 100 ML IVPB SCH (18:00)
[2022-12-26] MEDS: Clotrimazole 1% Cream 15 GM TUBE TOP SCH (23:42)
[2022-12-27] MEDS ORDERED: Vancomycin HCl 750 MG in Sodium Chloride 0.9% 250 ML 250 ML IVPB SCH (02:00)
[2022-12-27] MEDS: Cefepime 2 GM in Sodium Chloride 0.9% 100 ML IVPB SCH ×2 (03:19→16:10)
[2022-12-27] MEDS: Acetaminophen 325 MG TAB PO PRN ×2 (05:14→19:38)
[2022-12-27] MEDS: Albumin 25% 25 GM/100 ML BOT IVPB SCH ×3 (05:15→21:26)
[2022-12-27 05:29] LABS: #Basophils 0.1 10x3/uL (0.0-0.2); #Eosinphils 0.5 10x3/uL (0.0-0.5); #Monocytes 0.7 10x3/uL (0.0-1.1); #Neutrophils 4.4 10x3/uL (1.5-8.4); %Basophils 0.8 % (0.0-2.0); %Eosinophils 6.5 % (0.0-6.0); %Lymphocytes 19.4 % (18.0-47.0); %Monocytes 10.3 % (0.0-10.0); %Neutrophils 62.7 % (40.0-75.0); Hemoglobin 10.2 g/dL (12.0-15.5); Mean Corpuscular HGB CONC 35.1 g/dL (32.0-36.0); Mean Corpuscular Hemoglobin 28.8 pg (27.0-33.0); Mean Corpuscular Volume 82.2 fl (81.6-98.3); Mean Platelet Volume 11.1 fl (7.4-10.4); Platelet Count 198 10x3/uL (150-450); RBC Distribution Width 16.5 % (11.5-14.5); Red Blood Cell (RBC) Count 3.54 10x6/uL (3.90-5.03); White Blood Cell (WBC) Count 7.1 10x3/uL (3.5-10.5)
[2022-12-27 05:49] LABS: Anion Gap 16 mmol/L (10-20); BUN (Urea Nitrogen) 19 mg/dL (9.8-20.1); Calc. Creatinine Clearance 66 mL/min (70-130); Calcium 9.2 mg/dL (7.8-10.44); Carbon Dioxide 26 mmol/L (23-31); Chloride 102 mmol/L (98-107); Estimated GFR 58; Glucose 91 mg/dL (80-115); Magnesium 2.5 mg/dL (1.6-2.6); Potassium 3.9 mmol/L (3.5-5.1); Sodium 140 mmol/L (136-145)
[2022-12-27 08:07] VITALS: BMI 30.2
[2022-12-27] MEDS ORDERED: Furosemide 40 MG TAB PO SCH (09:00)
[2022-12-27] MEDS: Gabapentin 100 MG CAP PO SCH ×3 (10:13→21:40)
[2022-12-27] MEDS: Amiodarone 200 MG TAB PO SCH (10:14)
[2022-12-27] MEDS: hydrOXYzine 25 MG TAB PO SCH (10:14)
[2022-12-27] MEDS: Bupropion 150 MG XL TAB PO SCH (10:14)
[2022-12-27] MEDS: Montelukast Sodium 10 mg Tablet PO SCH (10:15)
[2022-12-27] MEDS: Carvedilol 3.125 MG TAB PO SCH ×2 (10:15→16:10)
[2022-12-27] MEDS: Spironolactone 25 MG TAB PO SCH (10:15)
[2022-12-27] MEDS: Multivit, Therapeutic 1 TAB PO SCH (10:16)
[2022-12-27] MEDS: Aspirin 81 mg Enteric Coated Tablet PO SCH (10:16)
[2022-12-27 13:13] LABS: Vancomycin, Trough 23.9 ug/mL
[2022-12-27] MEDS: Clotrimazole 1% Cream 15 GM TUBE TOP SCH ×2 (17:15→21:40)
[2022-12-28] MEDS ORDERED: Vancomycin HCl 1 GM in Sodium Chloride 0.9% 250 ML 250 ML IVPB SCH (02:00)
[2022-12-28] MEDS ORDERED: Vancomycin HCl 750 MG in Sodium Chloride 0.9% 250 ML 250 ML IVPB SCH (02:00)
[2022-12-28] MEDS ORDERED: Sodium Chloride 0.9% 250 ML 250 ML ONE (02:37)
[2022-12-28 06:07] LABS: Anion Gap 16 mmol/L (10-20); BUN (Urea Nitrogen) 18 mg/dL (9.8-20.1); Calc. Creatinine Clearance 79 mL/min (70-130); Calcium 9.4 mg/dL (7.8-10.44); Carbon Dioxide 25 mmol/L (23-31); Chloride 104 mmol/L (98-107); Estimated GFR 73; Glucose 80 mg/dL (80-115); Potassium 3.8 mmol/L (3.5-5.1); Sodium 141 mmol/L (136-145)
[2022-12-28 06:32] LABS: #Eosinphils 0.5 10x3/uL (0.0-0.5); #Monocytes 0.7 10x3/uL (0.0-1.1); #Neutrophils 3.3 10x3/uL (1.5-8.4); %Basophils 0.7 % (0.0-2.0); %Eosinophils 8.1 % (0.0-6.0); %Lymphocytes 24.5 % (18.0-47.0); %Monocytes 12.2 % (0.0-10.0); %Neutrophils 54.3 % (40.0-75.0); Hemoglobin 10.3 g/dL (12.0-15.5); Mean Corpuscular HGB CONC 34.2 g/dL (32.0-36.0); Mean Corpuscular Hemoglobin 28.5 pg (27.0-33.0); Mean Corpuscular Volume 83.1 fl (81.6-98.3); Mean Platelet Volume 11.2 fl (7.4-10.4); Platelet Count 196 10x3/uL (150-450); Red Blood Cell (RBC) Count 3.62 10x6/uL (3.90-5.03); White Blood Cell (WBC) Count 6.1 10x3/uL (3.5-10.5)
[2022-12-28] MEDS ORDERED: Potassium Chloride 20 MEQ TAB PO SCH (09:00)
[2022-12-28] MEDS: Aspirin 81 mg Enteric Coated Tablet PO SCH (09:07)
[2022-12-28] MEDS: Furosemide 40 MG/4 ML VIAL SLOW IVP SCH (09:07)
[2022-12-28] MEDS: Spironolactone 25 MG TAB PO SCH (09:07)
[2022-12-28] MEDS: Montelukast Sodium 10 mg Tablet PO SCH (09:08)
[2022-12-28] MEDS: Gabapentin 100 MG CAP PO SCH ×3 (09:08→21:44)
[2022-12-28] MEDS: Multivit, Therapeutic 1 TAB PO SCH (09:08)
[2022-12-28] MEDS: hydrOXYzine 25 MG TAB PO SCH (09:09)
[2022-12-28] MEDS: Carvedilol 3.125 MG TAB PO SCH ×2 (09:09→16:21)
[2022-12-28] MEDS: Amiodarone 200 MG TAB PO SCH (09:09)
[2022-12-28] MEDS: Bupropion 150 MG XL TAB PO SCH (09:10)
[2022-12-28] MEDS: Clotrimazole 1% Cream 15 GM TUBE TOP SCH ×2 (09:10→22:24)
[2022-12-28] MEDS: cefTRIAXone\\ROCEPHIN 2 GM in Sodium Chloride 0.9% 100 ML IVPB SCH (09:14)
[2022-12-28] MEDS ORDERED: Polyethylene Glycol 3350 17 GM Packet PO PRN (11:49)
[2022-12-28] MEDS: Acetaminophen 325 MG TAB PO PRN ×2 (16:20→23:24)
[2022-12-28] MEDS ORDERED: Saccharomyces boulardii 250 MG CAP PO SCH (21:00)
[2022-12-28] MEDS: Docusate 100 MG CAP PO SCH (21:45)
[2022-12-29] MEDS: Acetaminophen 325 MG TAB PO PRN ×2 (04:37→04:41)
[2022-12-29 05:46] LABS: Anion Gap 14 mmol/L (10-20); BUN (Urea Nitrogen) 23 mg/dL (9.8-20.1); Calc. Creatinine Clearance 68 mL/min (70-130); Calcium 9.8 mg/dL (7.8-10.44); Carbon Dioxide 27 mmol/L (23-31); Chloride 102 mmol/L (98-107); Estimated GFR 60; Glucose 88 mg/dL (80-115); Sodium 139 mmol/L (136-145)
[2022-12-29] MEDS: Bupropion 150 MG XL TAB PO SCH (09:25)
[2022-12-29] MEDS: Multivit, Therapeutic 1 TAB PO SCH (09:25)
[2022-12-29] MEDS: Amiodarone 200 MG TAB PO SCH (09:25)
[2022-12-29] MEDS: Aspirin 81 mg Enteric Coated Tablet PO SCH (09:25)
[2022-12-29] MEDS: Montelukast Sodium 10 mg Tablet PO SCH (09:26)
[2022-12-29] MEDS: Gabapentin 100 MG CAP PO SCH (09:26)
[2022-12-29] MEDS: hydrOXYzine 25 MG TAB PO SCH (09:26)
[2022-12-29] MEDS: Docusate 100 MG CAP PO SCH (09:26)
[2022-12-29] MEDS: Furosemide 40 MG/4 ML VIAL SLOW IVP SCH (09:26)
[2022-12-29] MEDS: Spironolactone 25 MG TAB PO SCH (09:27)
[2022-12-29] MEDS: Carvedilol 3.125 MG TAB PO SCH (09:28)
[2022-12-29] MEDS: cefTRIAXone\\ROCEPHIN 2 GM in Sodium Chloride 0.9% 100 ML IVPB SCH (09:28)
[2022-12-29] MEDS: Clotrimazole 1% Cream 15 GM TUBE TOP SCH (09:28)
[2022-12-29 11:58] VITALS: BP 127/69; TEMP 98.4
[2022-12-29] MEDS ORDERED: Furosemide 40 MG TAB PO SCH (12:00)
== END 2022-12-29 12:53 | disposition home or self-care (01) | DRG 602 ==
LOC: CSHERS 15:31 → CSHTELE 20:37
PROVIDERS: ADMIT Student in an Organized Health Care Education/Training Program; ATTEND Internal Medicine
PROC: 8E0ZXY6 Isolation (ICD-10-PCS; principal; 2022-12-24)
DX: L03.115 Cellulitis of right lower limb (principal); I50.23 Acute on chronic systolic (congestive) heart failure; U07.1 COVID-19; N17.9 Acute kidney failure, unspecified; I13.0 Hypertensive heart and chronic kidney disease with heart failure and stage 1 through stage 4 chronic kidney disease, or unspecified chronic kidney disease; I42.8 Other cardiomyopathies; I47.1 Supraventricular tachycardia; L03.116 Cellulitis of left lower limb; Z66 Do not resuscitate; K21.9 Gastro-esophageal reflux disease without esophagitis; M19.90 Unspecified osteoarthritis, unspecified site; E66.01 Morbid (severe) obesity due to excess calories; Z96.653 Presence of artificial knee joint, bilateral; I49.8 Other specified cardiac arrhythmias; I27.20 Pulmonary hypertension, unspecified; N18.2 Chronic kidney disease, stage 2 (mild); E83.42 Hypomagnesemia; E16.2 Hypoglycemia, unspecified; D63.1 Anemia in chronic kidney disease; E87.6 Hypokalemia; F79 Unspecified intellectual disabilities; I08.3 Combined rheumatic disorders of mitral, aortic and tricuspid valves; E78.00 Pure hypercholesterolemia, unspecified; Z90.49 Acquired absence of other specified parts of digestive tract; Z90.89 Acquired absence of other organs; Z98.1 Arthrodesis status; Z98.890 Other specified postprocedural states; Z68.38 Body mass index [BMI] 38.0-38.9, adult; Z82.49 Family history of ischemic heart disease and other diseases of the circulatory system; Z95.810 Presence of automatic (implantable) cardiac defibrillator; Z79.899 Other long term (current) drug therapy; Z79.82 Long term (current) use of aspirin; Z80.1 Family history of malignant neoplasm of trachea, bronchus and lung; Z98.84 Bariatric surgery status
CPT/HCPCS: 36415; 36416; 71045; 80048; 80053; 80202; 83605; 83735; 83880; 84443; 84484; 85025; 86038; 86225; 87040; 93005; 93010; 93306; 93923; 93970; 94760; 96374; 97139; J0692; J0696; J1650; J1940; J2405; J3370; J3475; J3490; J7050; P9047; U0002

== ENCOUNTER 2023-01-01 14:16 | Emergency (ER) | payer MEDICARE, MEDICAID ==
[2023-01-01 15:13] LABS: #Basophils 0.1 10x3/uL (0.0-0.2); #Eosinphils 0.4 10x3/uL (0.0-0.5); #Monocytes 0.8 10x3/uL (0.0-1.1); #Neutrophils 4.6 10x3/uL (1.5-8.4); %Eosinophils 5.6 % (0.0-6.0); %Lymphocytes 18.5 % (18.0-47.0); %Monocytes 10.9 % (0.0-10.0); %Neutrophils 63.6 % (40.0-75.0); Hemoglobin 11.9 g/dL (12.0-15.5); Mean Corpuscular HGB CONC 33.9 g/dL (32.0-36.0); Mean Corpuscular Hemoglobin 28.6 pg (27.0-33.0); Mean Corpuscular Volume 84.4 fl (81.6-98.3); Mean Platelet Volume 10.4 fl (7.4-10.4); Platelet Count 279 10x3/uL (150-450); Red Blood Cell (RBC) Count 4.16 10x6/uL (3.90-5.03); White Blood Cell (WBC) Count 7.2 10x3/uL (3.5-10.5)
[2023-01-01 15:28] LABS: ALT (SGPT) 22 U/L (8-55); AST (SGOT) 30 U/L (5-34); Albumin 4.3 g/dL (3.4-4.8); Alkaline Phosphatase 71 U/L (40-110); Anion Gap 16 mmol/L (10-20); BUN (Urea Nitrogen) 45 mg/dL (9.8-20.1); Bilirubin, Total 0.6 mg/dL (0.2-1.2); Calc. Creatinine Clearance 0 mL/min (70-130); Calcium 9.9 mg/dL (7.8-10.44); Carbon Dioxide 23 mmol/L (23-31); Chloride 101 mmol/L (98-107); Estimated GFR 42; Globulin 2.6 g/dL (2.4-3.5); Glucose 87 mg/dL (80-115); Potassium 4.3 mmol/L (3.5-5.1); Protein, Total 6.9 g/dL (5.8-8.1); Sodium 136 mmol/L (136-145)
== END 2023-01-01 17:19 | disposition home or self-care (01) ==
LOC: CSHERS 14:16
DX: I95.9 Hypotension, unspecified (principal); M25.59 Pain in other specified joint; K21.9 Gastro-esophageal reflux disease without esophagitis; E78.00 Pure hypercholesterolemia, unspecified; I11.0 Hypertensive heart disease with heart failure; I50.9 Heart failure, unspecified
CPT/HCPCS: 80053; 83605; 84484; 85025; 93005